=== PATIENT | male | born 1965 | race African-American/Black ===

== ENCOUNTER 2020-10-26 10:35 | Emergency (ER) | payer MEDICARE ==
[2020-10-26 12:41] LABS: ALBUMIN 4.1 g/dL (3.5-5.0); ALKALINE PHOSPHATASE 95 U/L (38-126); ANION GAP 9 (5-19); ASPARTATE AMINO TRANSFERASE 30 U/L (17-59); BILIRUBIN,DIRECT 0.2 mg/dL (0.0-0.4); BILIRUBIN,TOTAL 0.6 mg/dL (0.2-1.3); BLOOD UREA NITROGEN 26 mg/dL (7-20); CALCIUM 9.5 mg/dL (8.4-10.2); CARBON DIOXIDE 28 mmol/L (22-30); CHLORIDE 105 mmol/L (98-107); CREATINE KINASE 54 U/L (55-170); GLUCOSE 125 mg/dL (75-110); POTASSIUM 4.3 mmol/L (3.6-5.0)
[2020-10-26] MEDS ORDERED: NORMAL SALINE 1000 ML 1,000 ML IV ONE (12:44)
[2020-10-26 12:53] LABS: CREATINE KINASE MB 1.26 ng/mL (<4.55)
[2020-10-26 12:55] LABS: TROPONIN I < 0.012 ng/mL
--- NOTE | 2020-10-26 12:56 | RADIOLOGY REPORT (SQ) ---
EXAM DESCRIPTION: CHEST SINGLE VIEW IMAGES COMPLETED DATE/TIME: 10/26/2020 12:39 pm REASON FOR STUDY: short of breath COMPARISON: None. EXAM PARAMETERS: NUMBER OF VIEWS: One view. TECHNIQUE: Single frontal radiographic view of the chest acquired. RADIATION DOSE: NA LIMITATIONS: None. FINDINGS: LUNGS AND PLEURA: No opacities, masses or pneumothorax. No pleural effusion. MEDIASTINUM AND HILAR STRUCTURES: No masses. Contour normal. HEART AND VASCULAR STRUCTURES: Heart normal in size. Normal vasculature. BONES: No acute findings. HARDWARE: None in the chest. OTHER: No other significant finding. IMPRESSION: NO ACUTE RADIOGRAPHIC FINDING IN THE CHEST. TECHNICAL DOCUMENTATION: JOB ID: [id number] [employer]- All Rights Reserved Reading location - IP/workstation name: [email or web address]
[2020-10-26 14:18] LABS: ABSOLUTE NEUT (AUTO) 6.3 10^3/uL (1.7-8.2); BASOPHILS % (AUTO) 0.5 % (0-2); EOSINOPHILS % (AUTO) 0.2 % (0-6); HEMATOCRIT 43.2 % (37.9-51.0); HEMOGLOBIN 14.3 g/dL (13.5-17.0); LYMPHOCYTES % (AUTO) 21.2 % (13-45); MEAN CORPUSCULAR HEMOGLOBIN 31.1 pg (27.0-33.4); MEAN CORPUSCULAR HGB CONC 33.2 g/dL (32.0-36.0); MEAN CORPUSCULAR VOLUME 94 fl (80-97); MONOCYTES % (AUTO) 10.8 % (3-13); PLATELET COUNT 254 10^3/uL (150-450); RED BLOOD COUNT 4.61 10^6/uL (4.35-5.55); RED CELL DISTRIBUTION WIDTH 14.9 % (11.5-14.0); SEGMENTED NEUTROPHILS % (AUTO) 67.3 % (42-78); TOTAL CELLS COUNTED % (AUTO) 100 %; WHITE BLOOD COUNT 9.4 10^3/uL (4.0-10.5)
--- NOTE | 2020-10-26 17:16 | ER Document Report ---
ED Blood Pressure Problem - General Chief Complaint: High Blood Pressure Stated Complaint: SHORTNESS OF BREATH Time Seen by Provider: 10/26/20 12:42 Primary Care Provider: JOSÉ MIGUEL NOLAN MD [ACTIVE STAFF] - Follow up in 3-5 days Information source: Patient - HPI Notes: Patient comes in complaining of shortness of breath. He states that he got into an argument with family today and then developed significant shortness of breath. He states he did recently moved down here from [place]. He states that he had a positive Covid test approximately 3 weeks ago. He states he has not yet established any doctors here in the area. Patient states he feels that the symptoms of Covid have significantly decreased, he denies any cough fevers or congestion. He states that his shortness of breath is worse with exertion and better with rest. It is been moderate to severe today after the argument. He states he tried to take a shower but still felt "not right" so he came to the hospital. - Related Data Allergies/Adverse Reactions: No Known Allergies Allergy (Verified 10/26/20 11:19) Past Medical History - General Information source: Patient - Social History Smoking Status: Never Smoker Frequency of alcohol use: None Drug Abuse: None Family History: Reviewed & Not Pertinent - Past Medical History Cardiac Medical History: Reports: Hx Hypertension Review of Systems - Review of Systems Constitutional: Malaise, Weakness. denies: Chills, Fever Cardiovascular: denies: Chest pain, Palpitations Respiratory: Short of breath. denies: Cough -: Yes All other systems reviewed and negative Physical Exam - Vital signs Vitals: Pulse Resp BP Pulse Ox 120 H 14 149/100 H 94 10/25/20 10:54 10/25/20 10:54 10/25/20 10:54 10/25/20 10:54 Interpretation: Hypertensive, Tachycardic - General General appearance: Appears well, Alert - HEENT Head: Normocephalic, Atraumatic Eyes: Normal Pupils: PERRL - Respiratory Respiratory status: No respiratory distress Chest status: Nontender Breath sounds: Decreased air movement Chest palpation: Normal - Cardiovascular Rhythm: Tachycardia Heart sounds: Normal auscultation Murmur: No - Abdominal Inspection: Normal Distension: No distension Bowel sounds: Normal Tenderness: Nontender Organomegaly: No organomegaly - Back Back: Normal, Nontender - Extremities General upper extremity: Normal inspection, Nontender, Normal color, Normal ROM, Normal temperature General lower extremity: Normal inspection, Nontender, Normal color, Normal ROM, Normal temperature, Normal weight bearing. No: Florencia's sign - Neurological Neuro grossly intact: Yes Cognition: Normal Orientation: AAOx4 Flash Coma Scale Eye Opening: Spontaneous [place] Coma Scale Verbal: Oriented Flash Coma Scale Motor: Obeys Commands Flash Coma Scale Total: 15 Speech: Normal Motor strength normal: LUE, RUE, LLE, RLE Sensory: Normal - Psychological Associated symptoms: Normal affect, Normal mood - Skin Skin Temperature: Warm Skin Moisture: Dry Skin Color: Normal Course - Re-evaluation Re-evalutation: 10/26/20 17:50 The patient was evaluated during a global COVID-19 pandemic and that diagnosis was suspected/considered upon their initial presentation. Their evaluation, treatment and testing was consistent with current guidelines for patients who present with complaints or symptoms and may be related to COVID-19. Patient presents complaint of shortness of breath after an argument. I do not see any evidence of cardiac ischemia. There is no evidence of pulmonary embolism. No evidence of infectious process such as pneumonia. Patient is slightly tachycardic although much better than on arrival. This possibly may be due to lessening of his anxiety as well as an inappropriate sinus tachycardia secondary to his known Covid infection 3 weeks ago. I have called and spoke with my severity of illness coordinator, Dr. Nolan. He states that he will see the patient in the office for follow-up. - Vital Signs Vital signs: Temp Pulse Resp BP Pulse Ox 98.4 F 107 H 22 H 156/80 H 97 10/26/20 14:52 10/26/20 14:52 10/26/20 14:52 10/26/20 14:52 10/26/20 14:52 - Laboratory Results Result Diagrams: 10/26/20 13:51 10/26/20 11:44 Laboratory Results Interpreted: 10/26/20 10/26/20 11:44 13:51 RDW 14.9 H BUN 26 H Creatinine 1.53 H Est GFR ( Amer) 57 L Est GFR (MDRD) Non-Af 47 L Glucose 125 H Creatine Kinase 54 L Total Protein 9.0 H Critical Laboratory Results Reviewed: No Critical Results - Radiology Results Critical Radiology Results Reviewed: No Critical Results - EKG Interpretation by Me EKG shows normal: Sinus rhythm Rate: Tachycardia - 103 Rhythm: NSR Jackson/QRS: No: Right axis deviation, Left axis deviation Discharge - Discharge Clinical Impression: Sinus tachycardia Dyspnea Qualifiers: Dyspnea type: other forms of dyspnea Qualified Code(s): R06.09 - Other forms of dyspnea Condition: Stable Disposition: HOME, SELF-CARE Instructions: High Blood Pressure ([facility]), High Blood Pressure, Requiring Treatment ([facility]), Sinus Tachycardia ([facility]) Additional Instructions: Dr. Nolan will call you tomorrow to arrange follow-up Forms: Return to Work Referrals: JOSÉ MIGUEL NOLAN MD [ACTIVE STAFF] - Follow up in 3-5 days
--- NOTE | 2020-10-26 17:29 | RADIOLOGY REPORT (SQ) ---
EXAM DESCRIPTION: NM LUNG PERFUSION SCAN IMAGES COMPLETED DATE/TIME: 10/26/2020 3:57 pm REASON FOR STUDY: dyspnea COMPARISON: None. RADIONUCLIDE AND DOSE: 5 millicuries TC-99m MAA The route of agent administration: Intravenous TECHNIQUE: Eight views of the lungs acquired following injection of MAA. LIMITATIONS: None. FINDINGS: PERFUSION: Perfusion images with normal homogenous activity and no wedge-shaped or segment al defects. OTHER: No other significant finding. IMPRESSION: NORMAL PERFUSION LUNG SCAN. TECHNICAL DOCUMENTATION: JOB ID: [id number] [employer]- All Rights Reserved Reading location - IP/workstation name: [email or web address]
[2020-10-26 18:00] VITALS: BP 148/58
--- NOTE | 2020-10-26 21:13 | EKG REPORT ---
SEVERITY:- ABNORMAL ECG - SINUS TACHYCARDIA MULTIPLE VENTRICULAR PREMATURE COMPLEXES BORDERLINE T WAVE ABNORMALITIES : Confirmed by: Bruno Tolbert MD 26-Oct-2020 21:12:13
== END 2020-10-26 18:05 | disposition home or self-care (01) ==
LOC: ER 10:35
DX: R00.0 Tachycardia, unspecified (principal); R06.09 Other forms of dyspnea; I10 Essential (primary) hypertension
CPT/HCPCS: 93005; 99285; 96360; 36415; 82553; 82550; 85025; 80053; 84484; 83880; 71045; 78580; 93010; A9540; J7030; Q9969